=== PATIENT | female | born 1985 | race Caucasian/White ===

== ENCOUNTER 2016-06-09 18:21 | Emergency (ER) | payer OTHER ==
--- NOTE | 2016-06-09 19:15 | EDDOCDS ---
Nurse's Notes [facility] Name: Elvira Linton Age: 30 yrs Sex: Female : 1985 Arrival Date: 06/09/2016 Time: 18:21 Bed Triage 1 Private MD: No Pcp Diagnosis: Acute nasopharyngitis [common cold] Presentation: 06/09 18:26 Presenting complaint: Patient states: N/V/D yesterday, sore throat, congestion and mlb1 non-productive cough began two days ago. Adult Sepsis Screening: The patient does not have new or worsening altered mentation. Patient's respiratory rate is less than 22. Systolic blood pressure is greater than 100. Patient has a qSOFA score of 0- Negative Sepsis Screen. Suicide/Homicide risk assessment- the patient denies having any suicidal and/or homicidal ideations and does not present with any other emotional, behavioral or mental health complaints. 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 Transition of care: patient was not received from another setting of care. 18:26 Acuity: BRODIE Level 4 mlb1 18:26 Method Of Arrival: Walkin/Carried/Asstd mlb1 Triage Assessment: 18:30 General: Appears in no apparent distress, Behavior is appropriate for age, cooperative. mlb1 Pain: Location: throat, chest Pain currently is 7 out of 10 on a pain scale. HIV screening NA for this visit Offered previously. Respiratory: Reports cough that is non-productive, persistent. 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 Suboxone 8-2 mg SL film tid 2. Theraflu Max-D Severe Cold-Flu 60-30-400-1,000 mg oral pack as needed (Last dose: 06/09/2016 16:00) 3. Mucinex 1,200 mg oral Ta12 - PMHx: Asthma; Bipolar disorder; Migraine Headaches; opiate addiction; Seizure Disorder; - PSHx: none; - Social history: Smoking status: Patient states former smoker of tobacco. No barriers to communication noted, The patient speaks fluent Kazakh, Speaks appropriately for age. - Family history: Not pertinent. - : The pt / caregiver states he / she is not on anticoagulants. Home medication list is obtained from the patient. - Exposure Risk Screening:: None identified. Screenin:22 Infection Control. b 19:12 Screening information is obtained from the patient. Fall risk: No risks identified. [facility] Assistance ADL's: requires no assistance with activities of daily living. Abuse/DV Screen: The patient / caregiver reports he/she is: not in a situation that causes fear, pain or injury. Nutritional screening: No deficits noted. Advance Directives: There is no active DNR order. home support is adequate. Assessment: 19:12 General: Appears in no apparent distress, comfortable, Behavior is appropriate for age, cjh cooperative. Pain: Denies pain. Neurological: Level of Consciousness is awake, alert, Oriented to person, place, time. Respiratory: Airway is patent Respiratory effort is even, unlabored, Respiratory pattern is regular, symmetrical. Derm: Skin is pink, warm & dry. Vital Signs: 18:22 BP 114 / 85; Pulse 74; Resp 18; Temp 98(O); Pulse Ox 99% ; Weight 135.17 kg; Height 5 cmb ft. 4 in. (162.56 cm); Pain 7/10; 18:22 Body Mass Index 51.15 (135.17 kg, 162.56 cm) [facility] Vitals: 18:22 Log In Time: June 09, 2016 at 18:20. [facility] ED Course: 18:21 Patient visited by Freya Patterson. cmb 18:21 Patient moved to Waiting cmb 18:22 No Pcp is Private Physician. cmb 18:26 Patient visited by Karri Munoz RN. mlb1 18:26 Patient moved to Pre RCE cmb 18:27 Triage Initiated mlb1 18:30 Patient visited by Karri Munoz RN. mlb1 18:34 Patient moved to Triage 1 mlb1 18:57 Cedric Reyes PA is PHCP. btw 18:57 Tim Pathak MD is Attending Physician. btw 18:57 Patient visited by Cedric Reyes PA. btw 19:03 [facility] is Referral Physician. btw 19:12 The patient / caregiver is instructed regarding the plan of care and ED course. [facility] 19:12 No IV's were initiated during this patient's visit. No procedures done that require [facility] assistance. Order Results: There are currently no results for this order. Outcome: 19:03 Discharge ordered by Provider. btw 19:12 Discharge Assessment: Patient awake, alert and oriented x 3. No cognitive and/or [facility] functional deficits noted. Patient verbalized understanding of disposition instructions. patient administered narcotics - no. The following High Risk Discharge criteria are identified: None. Discharged to home ambulatory, with friend. Condition: good Condition: stable Condition: improved. Discharge instructions given to patient, Instructed on discharge instructions, follow up and referral plans. Demonstrated understanding of instructions, Pt was receptive of discharge instructions/ teaching. No special radiology studies were completed. Property :Personal belongings accompany Pt. 19:14 Patient left the ED. [facility] Signatures: Karri Munoz RN RN mlCedric Marx PA PA btw Hafner, Jane, RN RN [facility] Freya Patterson EMMA
--- NOTE | 2016-06-09 19:15 | EDDOCDS ---
Physician Documentation [facility] Name: Elvira Linton Age: 30 yrs Sex: Female : 1985 Arrival Date: 06/09/2016 Time: 18:21 Bed Triage 1 Private MD: No Pcp Disposition: 06/09/16 19:03 Discharged to Home/Self Care. Impression: Acute nasopharyngitis [common cold]. - Condition is Stable. - Discharge Instructions: Cool Mist Vaporizers, Upper Respiratory Infection, Adult, Ocwk-cd-Wyjt, Viral Infections, Cwjb-Tk-Qfro. - Medication Reconciliation, Local Pharmacy Hours form. - Follow up: [facility]; When: Call to arrange an appointment; Reason: Further diagnostic work-up, Recheck today's complaints, Continuance of care. - Problem is new. - Symptoms are unchanged. Historical: - Allergies: Aspirin (Hives); Codeine Sulfate (Hives); Seroquel (Hives); - Home Meds: 1. Suboxone 8-2 mg SL film tid 2. Theraflu Max-D Severe Cold-Flu 60-30-400-1,000 mg oral pack as needed (Last dose: 06/09/2016 16:00) 3. Mucinex 1,200 mg oral Ta12 - PMHx: Asthma; Bipolar disorder; Migraine Headaches; opiate addiction; Seizure Disorder; - PSHx: none; - Social history: Smoking status: Patient states former smoker of tobacco. No barriers to communication noted, The patient speaks fluent [place], Speaks appropriately for age. - Family history: Not pertinent. - : The pt / caregiver states he / she is not on anticoagulants. Home medication list is obtained from the patient. - Exposure Risk Screening:: None identified. 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 4 in. (162.56 cm); Pain 7/10; 18:22 Body Mass Index 51.15 (135.17 kg, 162.56 cm) cmb MDM: 19:13 Financial registration complete. [facility] Signatures: Karri Munoz RN RN mlb1 Cedric Reyes PA PA btw Hafner, JaneRN RN blayne Lu Cheema MTDD
--- NOTE | 2016-06-11 20:15 | EDDOCDS ---
Nurse's Notes [facility] Name: Elvira Linton Age: 30 yrs Sex: Female : 1985 Arrival Date: 06/09/2016 Time: 18:21 Bed Triage 1 Private MD: No Pcp Diagnosis: Acute nasopharyngitis [common cold] Presentation: 06/09 18:26 Presenting complaint: Patient states: N/V/D yesterday, sore throat, congestion and mlb1 non-productive cough began two days ago. Adult Sepsis Screening: The patient does not have new or worsening altered mentation. Patient's respiratory rate is less than 22. Systolic blood pressure is greater than 100. Patient has a qSOFA score of 0- Negative Sepsis Screen. Suicide/Homicide risk assessment- the patient denies having any suicidal and/or homicidal ideations and does not present with any other emotional, behavioral or mental health complaints. 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 Transition of care: patient was not received from another setting of care. 18:26 Acuity: BRODIE Level 4 mlb1 18:26 Method Of Arrival: Walkin/Carried/Asstd mlb1 Triage Assessment: 18:30 General: Appears in no apparent distress, Behavior is appropriate for age, cooperative. mlb1 Pain: Location: throat, chest Pain currently is 7 out of 10 on a pain scale. HIV screening NA for this visit Offered previously. Respiratory: Reports cough that is non-productive, persistent. 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 Suboxone 8-2 mg SL film tid 2. Theraflu Max-D Severe Cold-Flu 60-30-400-1,000 mg oral pack as needed (Last dose: 06/09/2016 16:00) 3. Mucinex 1,200 mg oral Ta12 - PMHx: Asthma; Bipolar disorder; Migraine Headaches; opiate addiction; Seizure Disorder; - PSHx: none; - Social history: Smoking status: Patient states former smoker of tobacco. No barriers to communication noted, The patient speaks fluent Chilean, Speaks appropriately for age. - Family history: Not pertinent. - : The pt / caregiver states he / she is not on anticoagulants. Home medication list is obtained from the patient. - Exposure Risk Screening:: None identified. Screenin:22 Infection Control. b 19:12 Screening information is obtained from the patient. Fall risk: No risks identified. [facility] Assistance ADL's: requires no assistance with activities of daily living. Abuse/DV Screen: The patient / caregiver reports he/she is: not in a situation that causes fear, pain or injury. Nutritional screening: No deficits noted. Advance Directives: There is no active DNR order. home support is adequate. Assessment: 19:12 General: Appears in no apparent distress, comfortable, Behavior is appropriate for age, cjh cooperative. Pain: Denies pain. Neurological: Level of Consciousness is awake, alert, Oriented to person, place, time. Respiratory: Airway is patent Respiratory effort is even, unlabored, Respiratory pattern is regular, symmetrical. Derm: Skin is pink, warm & dry. Vital Signs: 18:22 BP 114 / 85; Pulse 74; Resp 18; Temp 98(O); Pulse Ox 99% ; Weight 135.17 kg; Height 5 cmb ft. 4 in. (162.56 cm); Pain 7/10; 18:22 Body Mass Index 51.15 (135.17 kg, 162.56 cm) [facility] Vitals: 18:22 Log In Time: June 09, 2016 at 18:20. [facility] ED Course: 18:21 Patient visited by Freya Patterson. cmb 18:21 Patient moved to Waiting cmb 18:22 No Pcp is Private Physician. cmb 18:26 Patient visited by Karri Munoz RN. mlb1 18:26 Patient moved to Pre RCE cmb 18:27 Triage Initiated mlb1 18:30 Patient visited by Karri Munoz RN. mlb1 18:34 Patient moved to Triage 1 mlb1 18:57 Cedric Reyes PA is PHCP. btw 18:57 Tim Pathak MD is Attending Physician. btw 18:57 Patient visited by Cedric Reyes PA. btw 19:03 [facility] is Referral Physician. btw 19:12 The patient / caregiver is instructed regarding the plan of care and ED course. [facility] 19:12 No IV's were initiated during this patient's visit. No procedures done that require [facility] assistance. 19:22 [facility] Payment Agreement was scanned into [employer] and attached to record. nayeli 06/10 09:58 T-Sheet-- Draft Copy was scanned into [employer] and attached to record. gb Order Results: There are currently no results for this order. Outcome: 06/09 19:03 Discharge ordered by Provider. btw 19:12 Discharge Assessment: Patient awake, alert and oriented x 3. No cognitive and/or [facility] functional deficits noted. Patient verbalized understanding of disposition instructions. patient administered narcotics - no. The following High Risk Discharge criteria are identified: None. Discharged to home ambulatory, with friend. Condition: good Condition: stable Condition: improved. Discharge instructions given to patient, Instructed on discharge instructions, follow up and referral plans. Demonstrated understanding of instructions, Pt was receptive of discharge instructions/ teaching. No special radiology studies were completed. Property :Personal belongings accompany Pt. 19:14 Patient left the ED. [facility] Signatures: Nargis Peterson, Reg Reg Karri Moralez RN RN mlCedric Marx PA PA btw Mirlande Burk RN RN Freya Zavala Gabriela gjb Chart Complete MTDTyler
--- NOTE | 2016-06-11 20:15 | EDDOCDS ---
Physician Documentation [facility] Name: Elvira Linton Age: 30 yrs Sex: Female : 1985 Arrival Date: 06/09/2016 Time: 18:21 Bed Triage 1 Private MD: No Pcp Disposition: 06/09/16 19:03 Discharged to Home/Self Care. Impression: Acute nasopharyngitis [common cold]. - Condition is Stable. - Discharge Instructions: Cool Mist Vaporizers, Upper Respiratory Infection, Adult, Fysw-ic-Zexp, Viral Infections, Wwls-Pl-Ciqy. - Medication Reconciliation, Local Pharmacy Hours form. - Follow up: [facility]; When: Call to arrange an appointment; Reason: Further diagnostic work-up, Recheck today's complaints, Continuance of care. - Problem is new. - Symptoms are unchanged. Historical: - Allergies: Aspirin (Hives); Codeine Sulfate (Hives); Seroquel (Hives); - Home Meds: 1. Suboxone 8-2 mg SL film tid 2. Theraflu Max-D Severe Cold-Flu 60-30-400-1,000 mg oral pack as needed (Last dose: 06/09/2016 16:00) 3. Mucinex 1,200 mg oral Ta12 - PMHx: Asthma; Bipolar disorder; Migraine Headaches; opiate addiction; Seizure Disorder; - PSHx: none; - Social history: Smoking status: Patient states former smoker of tobacco. No barriers to communication noted, The patient speaks fluent Palauan, Speaks appropriately for age. - Family history: Not pertinent. - : The pt / caregiver states he / she is not on anticoagulants. Home medication list is obtained from the patient. - Exposure Risk Screening:: None identified. 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 4 in. (162.56 cm); Pain 7/10; 18:22 Body Mass Index 51.15 (135.17 kg, 162.56 cm) cmb MDM: 19:13 Financial registration complete. gjb 19:22 [facility] Payment Agreement was scanned into [employer] and attached to record. gjb 06/10 09:58 T-Sheet-- Draft Copy was scanned into [employer] and attached to record. gb Signatures: Nargis Peterson, [place] Reg Karri Moralez RN RN mlb1 Cedric Reyes PA PA btw Hafner, Jane, RN RN [facility] Lu Cheema The chart was reviewed and I authenticate all verbal orders and agree with the evaluation and treatment provided.Attachments: 06/09 19:22 [facility] [place] Payment Agreement gjb 06/10 09:58 T-Sheet-- Draft Copy gb Chart Complete MTDD
--- NOTE | 2016-06-11 20:15 | EDDOCDS ---
Physician Documentation [facility] Name: Elvira Linton Age: 30 yrs Sex: Female : 1985 Arrival Date: 06/09/2016 Time: 18:21 Bed Triage 1 Private MD: No Pcp Disposition: 06/09/16 19:03 Discharged to Home/Self Care. Impression: Acute nasopharyngitis [common cold]. - Condition is Stable. - Discharge Instructions: Cool Mist Vaporizers, Upper Respiratory Infection, Adult, Jejd-yh-Lqmz, Viral Infections, Pjfv-Ud-Tqju. - Medication Reconciliation, Local Pharmacy Hours form. - Follow up: [facility]; When: Call to arrange an appointment; Reason: Further diagnostic work-up, Recheck today's complaints, Continuance of care. - Problem is new. - Symptoms are unchanged. Historical: - Allergies: Aspirin (Hives); Codeine Sulfate (Hives); Seroquel (Hives); - Home Meds: 1. Suboxone 8-2 mg SL film tid 2. Theraflu Max-D Severe Cold-Flu 60-30-400-1,000 mg oral pack as needed (Last dose: 06/09/2016 16:00) 3. Mucinex 1,200 mg oral Ta12 - PMHx: Asthma; Bipolar disorder; Migraine Headaches; opiate addiction; Seizure Disorder; - PSHx: none; - Social history: Smoking status: Patient states former smoker of tobacco. No barriers to communication noted, The patient speaks fluent [place], Speaks appropriately for age. - Family history: Not pertinent. - : The pt / caregiver states he / she is not on anticoagulants. Home medication list is obtained from the patient. - Exposure Risk Screening:: None identified. 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 4 in. (162.56 cm); Pain 7/10; 18:22 Body Mass Index 51.15 (135.17 kg, 162.56 cm) cmb MDM: 19:13 Financial registration complete. gjb 19:22 [facility] Payment Agreement was scanned into [employer] and attached to record. gjb 06/10 09:58 T-Sheet-- Draft Copy was scanned into [employer] and attached to record. gb Signatures: Nargis Peterson, [place] Reg Karri Moralez RN RN mlb1 Cedric Reyes PA PA btw Hafner, Jane, RN RN [facility] Lu Cheema The chart was reviewed and I authenticate all verbal orders and agree with the evaluation and treatment provided.Attachments: 06/09 19:22 [facility] [place] gjb 06/10 09:58 T-Sheet-- Draft Copy gb Chart Complete MTDD
== END 2016-06-09 19:14 | disposition home or self-care (01) ==
LOC: M ED 18:21
DX: J06.9 Acute upper respiratory infection, unspecified (principal); J45.909 Unspecified asthma, uncomplicated; F31.9 Bipolar disorder, unspecified; G40.909 Epilepsy, unspecified, not intractable, without status epilepticus; F11.20 Opioid dependence, uncomplicated; Z87.891 Personal history of nicotine dependence; Z79.899 Other long term (current) drug therapy; Z88.6 Allergy status to analgesic agent; Z88.5 Allergy status to narcotic agent; Z88.8 Allergy status to other drugs, medicaments and biological substances

== ENCOUNTER 2016-06-14 21:07 | Emergency (ER) | payer OTHER ==
[2016-06-14] MEDS ORDERED: ONDANSETRON 4 MG ORAL DISINTEGRATING TAB (S0181) As Ordered ONE (23:33)
[2016-06-15 00:01] LABS: CONTROL LINE UCG INT CTR LINE PRESENT
[2016-06-15 00:09] LABS: BASO % 0.4 % (0.0-1.0); EOS # 0.2 K/mm3 (0.0-0.50); EOS % 2.1 % (0.0-3.0); LARGE UNSTAINED CELL # 0.1 K/mm3 (0.0-0.4); LARGE UNSTAINED CELL % 1.5 % (0.0-4.0); LYMPH # 2.3 K/mm3 (1.5-4.5); LYMPH % 25.5 % (24.0-44.0); MEAN CORPUSCULAR HEMOGLOBIN 27.6 pg (27.0-33.0); MEAN CORPUSCULAR HGB CONC 32.7 g/dl (32.0-36.5); MEAN CORPUSCULAR VOLUME 84.2 fl (80.0-96.0); MONO # 0.5 K/mm3 (0.0-0.8); MONO % 5.6 % (0.0-5.0); NEUTROPHILS % 64.9 % (36.0-66.0); PLATELET COUNT, AUTOMATED 268 k/mm3 (150-450); WHITE BLOOD COUNT 9.2 K/mm3 (4.0-10.0)
[2016-06-15 00:22] LABS: CONTROL LINE HCG INT CTR LINE PRESENT
[2016-06-15 00:29] LABS: ALBUMIN 4.1 GM/DL (3.2-5.2); ALBUMIN/GLOBULIN RATIO 0.98 (1.00-1.93); ALKALINE PHOSPHATASE 87 U/L (45-117); ALT/SGPT 28 U/L (12-78); ANION GAP 10 MEQ/L (8-16); AST/SGOT 15 U/L (15-37); BILIRUBIN,DIRECT 0.1 MG/DL (0.0-0.2); BILIRUBIN,TOTAL 0.4 MG/DL (0.2-1.0); BLOOD UREA NITROGEN 14 MG/DL (7-18); CALCIUM LEVEL 8.7 MG/DL (8.5-10.1); CARBON DIOXIDE LEVEL 27 MEQ/L (21-32); CHLORIDE LEVEL 104 MEQ/L (98-107); CREATININE FOR GFR 0.88 MG/DL (0.55-1.02); GLOMERULAR FILTRATION RATE > 60.0 (>60); GLUCOSE, FASTING 77 MG/DL (70-105); POTASSIUM SERUM 3.8 MEQ/L (3.5-5.1); SODIUM LEVEL 141 MEQ/L (136-145); TOTAL PROTEIN 8.3 GM/DL (6.4-8.2)
[2016-06-15] MEDS ORDERED: BACTRIM 160MG/800MG DS TAB As Ordered ONE (00:58)
--- NOTE | 2016-06-15 01:05 | EDDOCDS ---
Nurse's Notes [facility] Name: Elvira Linton Age: 30 yrs Sex: Female : 1985 Arrival Date: 06/14/2016 Time: 21:07 Bed Triage 2 Private MD: No Pcp Diagnosis: Pelvic and perineal pain;Urinary tract infection, site not specified;Vomiting Presentation: 06/14 21:13 Presenting complaint: Patient states: diarrhea and vomiting after eating for last 2 pml days - denies fever. reports low back pain around pelvis when waking up. Risk factors: the patient reports no vaginal bleeding. Adult Sepsis Screening: The patient does not have new or worsening altered mentation. Patient's respiratory rate is less than 22. Systolic blood pressure is greater than 100. Patient has a qSOFA score of 0- Negative Sepsis Screen. Suicide/Homicide risk assessment- the patient denies having any suicidal and/or homicidal ideations and does not present with any other emotional, behavioral or mental health complaints. Status: Patient is not a reference services head or dependent. Transition of care: patient was not received from another setting of care. 21:13 Acuity: BRODIE Level 3 pml 21:13 Method Of Arrival: Walkin/Carried/Asstd pml Triage Assessment: 21:14 General: Appears in no apparent distress, comfortable, Behavior is appropriate for age, pml cooperative. Pain: Location: pelvis Pain currently is 7 out of 10 on a pain scale. HIV screening NA for this visit Offered previously. GI: Reports diarrhea, vomiting. 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 Suboxone 8-2 mg SL film tid 2. albuterol sulfate 90 mcg/actuation Inhl HFAA 1 puff every 6 hours - PMHx: Asthma; Bipolar disorder; Migraine Headaches; opiate addiction; Seizure Disorder; - PSHx: none; - Social history: Smoking status: Patient uses tobacco products, light tobacco smoker. No barriers to communication noted, The patient speaks fluent Sami, Speaks appropriately for age. - Family history: Not pertinent. - : The pt / caregiver states he / she is not on anticoagulants. Home medication list is obtained from the patient. - Exposure Risk Screening:: None identified. Screenin:13 Infection Control. gr2 06/15 01:03 Screening information is obtained from the patient. Fall risk: No risks identified. cz Assistance ADL's: requires no assistance with activities of daily living. Abuse/DV Screen: The patient / caregiver reports he/she is: not in a situation that causes fear, pain or injury. Nutritional screening: No deficits noted. home support is adequate. Assessment: 01:03 Reassessment: Patient appears in no apparent distress at this time. GI: Abdomen is cz obese. Vital Signs: 06/14 21:09 BP 122 / 71; Pulse 87; Resp 18 S; Temp 98.0(O); Pulse Ox 100% on R/A; Weight 138.8 kg gr2 (M); Height 5 ft. 4 in. (162.56 cm) (R); Pain 6/10; 22:37 BP 124 / 72; Pulse 82; Resp 18; Temp 98.5(TE); Pulse Ox 100% on R/A; Pain 6/10; ar3 06/15 00:52 BP 143 / 77; Pulse 75; Resp 18; Temp 98.1(O); Pulse Ox 100% on R/A; Pain 6/10; kb5 06/14 21:09 Body Mass Index 52.52 (138.80 kg, 162.56 cm) gr2 Vitals: 06/14 21:09 Log In Time: June 14, 2016 at 21:09. gr2 ED Course: 21:09 Patient visited by Carmen Webster. gr2 21:09 No Pcp is Private Physician. gr2 21:09 Patient moved to Waiting gr2 21:12 Patient visited by Carmen Webster. gr2 21:13 Patient moved to Pre RCE gr2 21:14 Triage Initiated pml 21:15 Patient visited by Anita Cordero RN. pml 22:39 Patient visited by Marcie Perdomo PCA. ar3 23:18 Patient moved to Triage 2 cz 23:19 Karri Menendez PA is PHCP. mo1 23:19 Feliciano Winters DO is Attending Physician. mo1 23:19 Patient visited by Karri Menendez PA. mo1 23:47 Basic Metabolic Profile Sent. cln 23:47 CBC with Diff Sent. cln 23:47 HCG,Serum Qualitative Sent. cln 23:47 Lipase Sent. cln 23:47 Liver Profile Sent. cln 23:48 Patient moved to TR5 cln 23:48 Urinalysis Sent. cln 23:48 Urine Test-In Lab Sent. cln 23:48 Urine Culture Sent. cln 06/15 00:22 [facility] Payment Agreement was scanned into PAAY and attached to record. hs2 00:48 Patient visited by Edward Deasi PCA. kb5 00:48 Patient moved to Triage 2 cz 00:53 Patient visited by Edward Desai PCA. kb5 01:03 The patient / caregiver is instructed regarding the plan of care and ED course. cz 01:03 No IV's were initiated during this patient's visit. No procedures done that require cz assistance. Administered Medications: 06/14 23:47 Drug: Ondansetron ODT 4 mg [ondansetron 4 mg disintegrating tablet (1 tabs)] Route: PO; cz 06/15 01:02 Drug: Trimethoprim-Sulfamethoxazole 1 tabs [sulfamethoxazole 800 mg-trimethoprim 160 mg cz tablet (1 tabs)] Route: PO; Order Results: Lab Order: Basic Metabolic Profile; SPEC'M 06/14/16 23:35 Test: GLUCOSE, FASTING; Value: 77; Range: 70-105; Units: MG/DL; Status: F Test: BLOOD UREA NITROGEN; Value: 14; Range: 7-18; Units: MG/DL; Status: F Test: CREATININE FOR GFR; Value: 0.88; Range: 0.55-1.02; Units: MG/DL; Status: F Test: SODIUM LEVEL; Range: 136-145; Units: MEQ/L; Status: I Test: POTASSIUM SERUM; Range: 3.5-5.1; Units: MEQ/L; Status: I Test: CHLORIDE LEVEL; Range: 98-107; Units: MEQ/L; Status: I Test: CARBON DIOXIDE LEVEL; Range: 21-32; Units: MEQ/L; Status: I Test: ANION GAP; Range: 8-16; Units: MEQ/L; Status: I Test: CALCIUM LEVEL; Range: 8.5-10.1; Units: MG/DL; Status: I Test: GLOMERULAR FILTRATION RATE; Value: > 60.0; Range: >60; Status: F Test: SODIUM LEVEL; Value: 141; Range: 136-145; Units: MEQ/L; Status: F Test: POTASSIUM SERUM; Value: 3.8; Range: 3.5-5.1; Units: MEQ/L; Status: F Test: CHLORIDE LEVEL; Value: 104; Range: 98-107; Units: MEQ/L; Status: F Test: CARBON DIOXIDE LEVEL; Value: 27; Range: 21-32; Units: MEQ/L; Status: F Test: ANION GAP; Value: 10; Range: 8-16; Units: MEQ/L; Status: F Test: CALCIUM LEVEL; Value: 8.7; Range: 8.5-10.1; Units: MG/DL; Status: F Test Note: ; Units are mL/min/1.73 m2 Chronic Kidney Disease Staging per NKF: Stage I & II GFR >=60 Normal to Mildly Decreased Stage III GFR 30-59 Moderately Decreased Stage IV GFR 15-29 Severely Decreased Stage V GFR <15 Very Little GFR Left ESRD GFR <15 on FINE UNHAIRER Lab Order: CBC with Diff; SPEC'M 06/14/16 23:35 Test: WHITE BLOOD COUNT; Value: 9.2; Range: 4.0-10.0; Units: K/mm3; Status: F Test: RED BLOOD COUNT; Value: 4.87; Range: 4.00-5.40; Units: M/mm3; Status: F Test: HEMOGLOBIN; Value: 13.4; Range: 12.0-16.0; Units: g/dl; Status: F Test: HEMATOCRIT; Value: 41.0; Range: 36.0-47.0; Units: %; Status: F Test: MEAN CORPUSCULAR VOLUME; Value: 84.2; Range: 80.0-96.0; Units: fl; Status: F Test: MEAN CORPUSCULAR HEMOGLOBIN; Value: 27.6; Range: 27.0-33.0; Units: pg; Status: F Test: MEAN CORPUSCULAR HGB CONC; Value: 32.7; Range: 32.0-36.5; Units: g/dl; Status: F Test: RED CELL DISTRIBUTION WIDTH; Value: 14.0; Range: 11.5-14.5; Units: %; Status: F Test: PLATELET COUNT, AUTOMATED; Value: 268; Range: 150-450; Units: k/mm3; Status: F Test: NEUTROPHILS %; Value: 64.9; Range: 36.0-66.0; Units: %; Status: F Test: LYMPH %; Value: 25.5; Range: 24.0-44.0; Units: %; Status: F Test: MONO %; Value: 5.6; Range: 0.0-5.0; Abnormal: Above high normal; Units: %; Status: F Test: EOS %; Value: 2.1; Range: 0.0-3.0; Units: %; Status: F Test: BASO %; Value: 0.4; Range: 0.0-1.0; Units: %; Status: F Test: LARGE UNSTAINED CELL %; Value: 1.5; Range: 0.0-4.0; Units: %; Status: F Test: NEUTROPHILS #; Value: 6.0; Range: 1.8-7.7; Units: K/mm3; Status: F Test: LYMPH #; Value: 2.3; Range: 1.5-4.5; Units: K/mm3; Status: F Test: MONO #; Value: 0.5; Range: 0.0-0.8; Units: K/mm3; Status: F Test: EOS #; Value: 0.2; Range: 0.0-0.50; Units: K/mm3; Status: F Test: BASO #; Value: 0.0; Range: 0.0-0.2; Units: K/mm3; Status: F Test: LARGE UNSTAINED CELL #; Value: 0.1; Range: 0.0-0.4; Units: K/mm3; Status: F Lab Order: HCG,Serum Qualitative; SPEC'M 06/14/16 23:35 Test: HCG, SERUM QUALITATIVE; Value: NEGATIVE; Range: NEGATIVE; Status: F Lab Order: Lipase; SPEC'M 06/14/16 23:35 Test: LIPASE; Value: 106; Range: 73-393; Units: U/L; Status: F Lab Order: Liver Profile; SPEC'M 06/14/16 23:35 Test: AST/SGOT; Value: 15; Range: 15-37; Units: U/L; Status: F Test: ALT/SGPT; Value: 28; Range: 12-78; Units: U/L; Status: F Test: ALKALINE PHOSPHATASE; Value: 87; Range: 45-117; Units: U/L; Status: F Test: BILIRUBIN,TOTAL; Value: 0.4; Range: 0.2-1.0; Units: MG/DL; Status: F Test: BILIRUBIN,DIRECT; Value: 0.1; Range: 0.0-0.2; Units: MG/DL; Status: F Test: TOTAL PROTEIN; Value: 8.3; Range: 6.4-8.2; Abnormal: Above high normal; Units: GM/DL; Status: F Test: ALBUMIN; Value: 4.1; Range: 3.2-5.2; Units: GM/DL; Status: F Test: ALBUMIN/GLOBULIN RATIO; Value: 0.98; Range: 1.00-1.93; Abnormal: Below low normal; Status: F Lab Order: Urinalysis; SPEC'M 06/14/16 23:35 Test: APPEARANCE, URINE; Value: CLOUDY; Range: CLEAR; Abnormal: Above high normal; Status: F Test: COLOR, URINE; Value: YELLOW; Range: YELLOW; Status: F Test: PH,URINE; Value: 7.0; Range: 5.0-9.0; Units: UNITS; Status: F Test: SPECIFIC GRAVITY URINE AUTO; Value: 1.024; Range: 1.002-1.035; Status: F Test: PROTEIN, URINE AUTO; Value: NEGATIVE; Range: NEGATIVE; Units: mg/dL; Status: F Test: GLUCOSE, URINE (UA) AUTO; Value: NEGATIVE; Range: NEGATIVE; Units: mg/dL; Status: F Test: KETONE, URINE AUTO; Value: NEGATIVE; Range: NEGATIVE; Units: mg/dL; Status: F Test: UROBILINOGEN, URINE AUTO; Value: 4.0; Range: 0.0-2.0; Abnormal: Above high normal; Units: mg/dL; Status: F Test: BILIRUBIN, URINE AUTO; Value: NEGATIVE; Range: NEGATIVE; Status: F Test: NITRITE, URINE AUTO; Value: NEGATIVE; Range: NEGATIVE; Status: F Test: LEUKOCYTE ESTERASE, URINE AUTO; Value: 1+; Range: NEGATIVE; Abnormal: Above high normal; Status: F Test: BLOOD, URINE BLOOD; Value: NEGATIVE; Range: NEGATIVE; Status: F Test: SPERM, URINE AUTO; Range: NONE; Status: I Test: WBC, URINE AUTO; Value: 21; Range: 0-3; Abnormal: Above high normal; Units: /HPF; Status: F Test: RBC, URINE AUTO; Value: 5; Range: 0-3; Abnormal: Above high normal; Units: /HPF; Status: F Test: BACTERIA, URINE AUTO; Value: NEGATIVE; Range: NEGATIVE; Status: F Test: SQUAMOUS EPITHELIAL CELL UR AU; Value: 3; Range: 0-6; Units: /HPF; Status: F Test: MUCUS, URINE; Value: SMALL; Range: NEGATIVE; Status: F Test: HYALINE CAST, URINE AUTO; Value: 0; Range: 0-1; Units: /LPF; Status: F Test: AMORPHOUS SEDIMENT; Value: SMALL; Range: NEGATIVE; Abnormal: Above high normal; Status: F Lab Order: Urine Test-In Lab; SPEC'M 06/14/16 23:35 Test: URINE PREG TEST; Value: NEGATIVE; Range: NEGATIVE; Status: F Outcome: 00:53 Discharge ordered by Provider. mo1 01:02 Discharge Assessment: Patient awake, alert and oriented x 3. No cognitive and/or cz functional deficits noted. Patient verbalized understanding of disposition instructions. patient administered narcotics - no. The following High Risk Discharge criteria are identified: None. Discharged to home ambulatory. Condition: stable. Discharge instructions given to patient, Instructed on discharge instructions, follow up and referral plans. medication usage, Demonstrated understanding of instructions, medications, Pt was receptive of discharge instructions/ teaching. Prescriptions given X 3. No special radiology studies were completed. Property :Personal belongings accompany Pt. 01:04 Patient left the ED. cz Signatures: Josep George RN RN cz Bancroft, Kristopher, TOOL CRIB MANAGER TOOL CRIB MANAGER kb5 Marcie Perdomo, TOOL CRIB MANAGER TOOL CRIB MANAGER ar3 Anita Cordero,RN Carmen Ghotra gr2 Karri Menendez PA PA mo1 Nery Sanchez, Reg Reg hs2 Emily Cline, TOOL CRIB MANAGER TOOL CRIB MANAGER cln MTDD
--- NOTE | 2016-06-15 01:05 | EDDOCDS ---
Physician Documentation [facility] Name: Elvira Linton Age: 30 yrs Sex: Female : 1985 Arrival Date: 06/14/2016 Time: 21:07 Bed Triage 2 Private MD: No Pcp Disposition: 06/15/16 00:53 Discharged to Home/Self Care. Impression: Pelvic and perineal pain, Urinary tract infection, site not specified, Vomiting. - Condition is Stable. - Discharge Instructions: Nausea and Vomiting, Pelvic Pain, Female, Urinary Tract Infection. - Prescriptions for Cipro 500 mg Oral Tablet - take 1 tablet by ORAL route every 12 hours; 14 tablet. Diflucan 150 mg Oral Tablet - take 1 tablet by ORAL route one time for 1 day; 2 tablet. ZOFRAN ODT 4 mg - dissolve 1 tablet by ORAL route 4 times per day As needed do not chew, do not swallow whole; 10 tablet. - Medication Reconciliation, Local Pharmacy Hours form. - Follow up: Private Physician; When: Call to arrange an appointment; Reason: Recheck today's complaints, Continuance of care. - Problem is new. - Symptoms are unchanged. Historical: - Allergies: Seroquel (Hives); Aspirin (Hives); Codeine Sulfate (Hives); - Home Meds: 1. Suboxone 8-2 mg SL film tid 2. albuterol sulfate 90 mcg/actuation Inhl HFAA 1 puff every 6 hours - PMHx: Asthma; Bipolar disorder; Migraine Headaches; opiate addiction; Seizure Disorder; - PSHx: none; - Social history: Smoking status: Patient uses tobacco products, light tobacco smoker. No barriers to communication noted, The patient speaks fluent [place], Speaks appropriately for age. - Family history: Not pertinent. - : The pt / caregiver states he / she is not on anticoagulants. Home medication list is obtained from the patient. - Exposure Risk Screening:: None identified. 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 4 in. (162.56 cm) (R); Pain 6/10; 22:37 BP 124 / 72; Pulse 82; Resp 18; Temp 98.5(TE); Pulse Ox 100% on R/A; Pain 6/10; ar3 06/15 00:52 BP 143 / 77; Pulse 75; Resp 18; Temp 98.1(O); Pulse Ox 100% on R/A; Pain 6/10; kb5 06/14 21:09 Body Mass Index 52.52 (138.80 kg, 162.56 cm) gr2 MDM: 06/14 23:31 Ondansetron ODT Oral Disintegrating Tablet 4 mg PO once ordered. mo1 23:31 Basic Metabolic Profile Ordered. EDMS 23:31 CBC with Diff Ordered. EDMS 23:31 HCG,Serum Qualitative Ordered. EDMS 23:31 Lipase Ordered. EDMS 23:31 Liver Profile Ordered. EDMS 23:32 Urinalysis Ordered. EDMS 23:32 Urine Test-In Lab Ordered. EDMS 23:32 Urine Culture Ordered. EDMS 23:32 NOTHING BY MOUTH+DIET ordered. EDMS 23:43 Financial registration complete. hs2 06/15 00:22 [facility] Payment Agreement was scanned into [employer] and attached to record. hs2 00:31 CBC with Diff Reviewed. mo1 00:31 Urinalysis Reviewed. mo1 00:32 HCG,Serum Qualitative Reviewed. mo1 00:32 Urine Test-In Lab Reviewed. mo1 00:36 Liver Profile Reviewed. mo1 00:36 Basic Metabolic Profile Reviewed. mo1 00:36 Lipase Reviewed. mo1 00:52 Trimethoprim-Sulfamethoxazole 160 mg-800 mg (DS) 1 tabs PO once ordered. mo1 Administered Medications: 06/14 23:47 Drug: Ondansetron ODT 4 mg [ondansetron 4 mg disintegrating tablet (1 tabs)] Route: PO; cz 06/15 01:02 Drug: Trimethoprim-Sulfamethoxazole 1 tabs [sulfamethoxazole 800 mg-trimethoprim 160 mg cz tablet (1 tabs)] Route: PO; Signatures: Dispatcher Med[employer] EDMS Josep George RN RN cz Quay, Paulina, RN RN pml Karri Menendez PA PA mo1 Nery Sanchez, Reg Reg hs2 The chart was reviewed and I authenticate all verbal orders and agree with the evaluation and treatment provided.Attachments: 00:22 [facility] Payment Agreement hs2 MTDD
--- NOTE | 2016-06-17 02:05 | EDDOCDS ---
Physician Documentation [facility] Name: Elvira Linton Age: 30 yrs Sex: Female : 1985 Arrival Date: 06/14/2016 Time: 21:07 Bed Triage 2 Private MD: No Pcp Disposition: 06/15/16 00:53 Discharged to Home/Self Care. Impression: Pelvic and perineal pain, Urinary tract infection, site not specified, Vomiting. - Condition is Stable. - Discharge Instructions: Nausea and Vomiting, Pelvic Pain, Female, Urinary Tract Infection. - Prescriptions for Cipro 500 mg Oral Tablet - take 1 tablet by ORAL route every 12 hours; 14 tablet. Diflucan 150 mg Oral Tablet - take 1 tablet by ORAL route one time for 1 day; 2 tablet. ZOFRAN ODT 4 mg - dissolve 1 tablet by ORAL route 4 times per day As needed do not chew, do not swallow whole; 10 tablet. - Medication Reconciliation, Local Pharmacy Hours form. - Follow up: Private Physician; When: Call to arrange an appointment; Reason: Recheck today's complaints, Continuance of care. - Problem is new. - Symptoms are unchanged. Historical: - Allergies: Seroquel (Hives); Aspirin (Hives); Codeine Sulfate (Hives); - Home Meds: 1. Suboxone 8-2 mg SL film tid 2. albuterol sulfate 90 mcg/actuation Inhl HFAA 1 puff every 6 hours - PMHx: Asthma; Bipolar disorder; Migraine Headaches; opiate addiction; Seizure Disorder; - PSHx: none; - Social history: Smoking status: Patient uses tobacco products, light tobacco smoker. No barriers to communication noted, The patient speaks fluent Indian, Speaks appropriately for age. - Family history: Not pertinent. - : The pt / caregiver states he / she is not on anticoagulants. Home medication list is obtained from the patient. - Exposure Risk Screening:: None identified. 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 4 in. (162.56 cm) (R); Pain 6/10; 22:37 BP 124 / 72; Pulse 82; Resp 18; Temp 98.5(TE); Pulse Ox 100% on R/A; Pain 6/10; ar3 06/15 00:52 BP 143 / 77; Pulse 75; Resp 18; Temp 98.1(O); Pulse Ox 100% on R/A; Pain 6/10; kb5 06/14 21:09 Body Mass Index 52.52 (138.80 kg, 162.56 cm) gr2 MDM: 06/14 23:31 Ondansetron ODT Oral Disintegrating Tablet 4 mg PO once ordered. mo1 23:31 Basic Metabolic Profile Ordered. EDMS 23:31 CBC with Diff Ordered. EDMS 23:31 HCG,Serum Qualitative Ordered. EDMS 23:31 Lipase Ordered. EDMS 23:31 Liver Profile Ordered. EDMS 23:32 Urinalysis Ordered. EDMS 23:32 Urine Test-In Lab Ordered. EDMS 23:32 Urine Culture Ordered. EDMS 23:32 NOTHING BY MOUTH+DIET ordered. EDMS 23:43 Financial registration complete. hs2 06/15 00:22 [facility] Payment Agreement was scanned into Vestor[employer] and attached to record. hs2 00:31 CBC with Diff Reviewed. mo1 00:31 Urinalysis Reviewed. mo1 00:32 HCG,Serum Qualitative Reviewed. mo1 00:32 Urine Test-In Lab Reviewed. mo1 00:36 Liver Profile Reviewed. mo1 00:36 Basic Metabolic Profile Reviewed. mo1 00:36 Lipase Reviewed. mo1 00:52 Trimethoprim-Sulfamethoxazole 160 mg-800 mg (DS) 1 tabs PO once ordered. mo1 09:41 T-Sheet-- Draft Copy was scanned into Vestor[employer] and attached to record. gb Administered Medications: 06/14 23:47 Drug: Ondansetron ODT 4 mg [ondansetron 4 mg disintegrating tablet (1 tabs)] Route: PO; cz 06/15 01:02 Drug: Trimethoprim-Sulfamethoxazole 1 tabs [sulfamethoxazole 800 mg-trimethoprim 160 mg cz tablet (1 tabs)] Route: PO; Signatures: Dispatcher [employer] EDMS Josep George RN RN cz Barnhardt, Gloria, [place] Reg gb Anita Cordero RN RN pml O'Hagan, Michael, PA PA mo1 Nery Sanchez, Reg Reg hs2 The chart was reviewed and I authenticate all verbal orders and agree with the evaluation and treatment provided.Attachments: 00:22 [facility] Payment Agreement hs2 09:41 T-Sheet-- Draft Copy gb Chart Complete MTDD
--- NOTE | 2016-06-17 02:05 | EDDOCDS ---
Physician Documentation [facility] Name: Elvira Linton Age: 30 yrs Sex: Female : 1985 Arrival Date: 06/14/2016 Time: 21:07 Bed Triage 2 Private MD: No Pcp Disposition: 06/15/16 00:53 Discharged to Home/Self Care. Impression: Pelvic and perineal pain, Urinary tract infection, site not specified, Vomiting. - Condition is Stable. - Discharge Instructions: Nausea and Vomiting, Pelvic Pain, Female, Urinary Tract Infection. - Prescriptions for Cipro 500 mg Oral Tablet - take 1 tablet by ORAL route every 12 hours; 14 tablet. Diflucan 150 mg Oral Tablet - take 1 tablet by ORAL route one time for 1 day; 2 tablet. ZOFRAN ODT 4 mg - dissolve 1 tablet by ORAL route 4 times per day As needed do not chew, do not swallow whole; 10 tablet. - Medication Reconciliation, Local Pharmacy Hours form. - Follow up: Private Physician; When: Call to arrange an appointment; Reason: Recheck today's complaints, Continuance of care. - Problem is new. - Symptoms are unchanged. Historical: - Allergies: Seroquel (Hives); Aspirin (Hives); Codeine Sulfate (Hives); - Home Meds: 1. Suboxone 8-2 mg SL film tid 2. albuterol sulfate 90 mcg/actuation Inhl HFAA 1 puff every 6 hours - PMHx: Asthma; Bipolar disorder; Migraine Headaches; opiate addiction; Seizure Disorder; - PSHx: none; - Social history: Smoking status: Patient uses tobacco products, light tobacco smoker. No barriers to communication noted, The patient speaks fluent Senegalese, Speaks appropriately for age. - Family history: Not pertinent. - : The pt / caregiver states he / she is not on anticoagulants. Home medication list is obtained from the patient. - Exposure Risk Screening:: None identified. FINANCIAL SERVICES INTERNSHIP: 06/14 21:14 LMP 06/10/2015 pml Vital Signs: 21:09 BP 122 / 71; Pulse 87; Resp 18 S; Temp 98.0(O); Pulse Ox 100% on R/A; Weight 138.8 kg / gr2 306 lbs (M); Height 5 ft. 4 in. (162.56 cm) (R); Pain 6/10; 22:37 BP 124 / 72; Pulse 82; Resp 18; Temp 98.5(TE); Pulse Ox 100% on R/A; Pain 6/10; ar3 06/15 00:52 BP 143 / 77; Pulse 75; Resp 18; Temp 98.1(O); Pulse Ox 100% on R/A; Pain 6/10; kb5 06/14 21:09 Body Mass Index 52.52 (138.80 kg, 162.56 cm) gr2 MDM: 06/14 23:31 Ondansetron ODT Oral Disintegrating Tablet 4 mg PO once ordered. mo1 23:31 Basic Metabolic Profile Ordered. EDMS 23:31 CBC with Diff Ordered. EDMS 23:31 HCG,Serum Qualitative Ordered. EDMS 23:31 Lipase Ordered. EDMS 23:31 Liver Profile Ordered. EDMS 23:32 Urinalysis Ordered. EDMS 23:32 Urine Test-In Lab Ordered. EDMS 23:32 Urine Culture Ordered. EDMS 23:32 NOTHING BY MOUTH+DIET ordered. EDMS 23:43 Financial registration complete. hs2 06/15 00:22 [facility] Payment Agreement was scanned into [employer] and attached to record. hs2 00:31 CBC with Diff Reviewed. mo1 00:31 Urinalysis Reviewed. mo1 00:32 HCG,Serum Qualitative Reviewed. mo1 00:32 Urine Test-In Lab Reviewed. mo1 00:36 Liver Profile Reviewed. mo1 00:36 Basic Metabolic Profile Reviewed. mo1 00:36 Lipase Reviewed. mo1 00:52 Trimethoprim-Sulfamethoxazole 160 mg-800 mg (DS) 1 tabs PO once ordered. mo1 09:41 T-Sheet-- Draft Copy was scanned into [employer] and attached to record. gb Administered Medications: 06/14 23:47 Drug: Ondansetron ODT 4 mg [ondansetron 4 mg disintegrating tablet (1 tabs)] Route: PO; cz 06/15 01:02 Drug: Trimethoprim-Sulfamethoxazole 1 tabs [sulfamethoxazole 800 mg-trimethoprim 160 mg cz tablet (1 tabs)] Route: PO; Signatures: Dispatcher [employer] EDMS Josep George RN RN cz Barnhardt, Gloria, [place] Reg gb Anita Cordero RN RN pml O'Hagan, Michael, PA PA mo1 Nery Sanchez, Reg Reg hs2 The chart was reviewed and I authenticate all verbal orders and agree with the evaluation and treatment provided.Attachments: 00:22 [facility] Payment Agreement hs2 09:41 T-Sheet-- Draft Copy gb Chart Complete MTDD
--- NOTE | 2016-06-17 02:05 | EDDOCDS ---
Nurse's Notes [facility] Name: Elvira Linton Age: 30 yrs Sex: Female : 1985 Arrival Date: 06/14/2016 Time: 21:07 Bed Triage 2 Private MD: No Pcp Diagnosis: Pelvic and perineal pain;Urinary tract infection, site not specified;Vomiting Presentation: 06/14 21:13 Presenting complaint: Patient states: diarrhea and vomiting after eating for last 2 pml days - denies fever. reports low back pain around pelvis when waking up. Risk factors: the patient reports no vaginal bleeding. Adult Sepsis Screening: The patient does not have new or worsening altered mentation. Patient's respiratory rate is less than 22. Systolic blood pressure is greater than 100. Patient has a qSOFA score of 0- Negative Sepsis Screen. Suicide/Homicide risk assessment- the patient denies having any suicidal and/or homicidal ideations and does not present with any other emotional, behavioral or mental health complaints. 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 Transition of care: patient was not received from another setting of care. 21:13 Acuity: BRODIE Level 3 pml 21:13 Method Of Arrival: Walkin/Carried/Asstd pml Triage Assessment: 21:14 General: Appears in no apparent distress, comfortable, Behavior is appropriate for age, pml cooperative. Pain: Location: pelvis Pain currently is 7 out of 10 on a pain scale. HIV screening NA for this visit Offered previously. GI: Reports diarrhea, vomiting. 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 Suboxone 8-2 mg SL film tid 2. albuterol sulfate 90 mcg/actuation Inhl HFAA 1 puff every 6 hours - PMHx: Asthma; Bipolar disorder; Migraine Headaches; opiate addiction; Seizure Disorder; - PSHx: none; - Social history: Smoking status: Patient uses tobacco products, light tobacco smoker. No barriers to communication noted, The patient speaks fluent Mongolian, Speaks appropriately for age. - Family history: Not pertinent. - : The pt / caregiver states he / she is not on anticoagulants. Home medication list is obtained from the patient. - Exposure Risk Screening:: None identified. Screenin:13 Infection Control. gr2 06/15 01:03 Screening information is obtained from the patient. Fall risk: No risks identified. cz Assistance ADL's: requires no assistance with activities of daily living. Abuse/DV Screen: The patient / caregiver reports he/she is: not in a situation that causes fear, pain or injury. Nutritional screening: No deficits noted. home support is adequate. Assessment: 01:03 Reassessment: Patient appears in no apparent distress at this time. GI: Abdomen is cz obese. Vital Signs: 06/14 21:09 BP 122 / 71; Pulse 87; Resp 18 S; Temp 98.0(O); Pulse Ox 100% on R/A; Weight 138.8 kg gr2 (M); Height 5 ft. 4 in. (162.56 cm) (R); Pain 6/10; 22:37 BP 124 / 72; Pulse 82; Resp 18; Temp 98.5(TE); Pulse Ox 100% on R/A; Pain 6/10; ar3 06/15 00:52 BP 143 / 77; Pulse 75; Resp 18; Temp 98.1(O); Pulse Ox 100% on R/A; Pain 6/10; kb5 06/14 21:09 Body Mass Index 52.52 (138.80 kg, 162.56 cm) gr2 Vitals: 06/14 21:09 Log In Time: June 14, 2016 at 21:09. gr2 ED Course: 21:09 Patient visited by Carmen Webster. gr2 21:09 No Pcp is Private Physician. gr2 21:09 Patient moved to Waiting gr2 21:12 Patient visited by Carmen Webster. gr2 21:13 Patient moved to Pre RCE gr2 21:14 Triage Initiated pml 21:15 Patient visited by Anita Cordero RN. pml 22:39 Patient visited by Marcie Perdomo PCA. ar3 23:18 Patient moved to Triage 2 cz 23:19 Karri Menendez PA is PHCP. mo1 23:19 Feliciano Winters DO is Attending Physician. mo1 23:19 Patient visited by Karri Menendez PA. mo1 23:47 Basic Metabolic Profile Sent. cln 23:47 CBC with Diff Sent. cln 23:47 HCG,Serum Qualitative Sent. cln 23:47 Lipase Sent. cln 23:47 Liver Profile Sent. cln 23:48 Patient moved to TR5 cln 23:48 Urinalysis Sent. cln 23:48 Urine Test-In Lab Sent. cln 23:48 Urine Culture Sent. cln 06/15 00:22 [facility] Payment Agreement was scanned into [employer] and attached to record. hs2 00:48 Patient visited by Edward eDsai PCA. kb5 00:48 Patient moved to Triage 2 cz 00:53 Patient visited by Edward Desai PCA. kb5 01:03 The patient / caregiver is instructed regarding the plan of care and ED course. cz 01:03 No IV's were initiated during this patient's visit. No procedures done that require cz assistance. 09:41 T-Sheet-- Draft Copy was scanned into [employer] and attached to record. gb Administered Medications: 06/14 23:47 Drug: Ondansetron ODT 4 mg [ondansetron 4 mg disintegrating tablet (1 tabs)] Route: PO; cz 06/15 01:02 Drug: Trimethoprim-Sulfamethoxazole 1 tabs [sulfamethoxazole 800 mg-trimethoprim 160 mg cz tablet (1 tabs)] Route: PO; Order Results: Lab Order: Basic Metabolic Profile; SPEC'M 06/14/16 23:35 Test: GLUCOSE, FASTING; Value: 77; Range: 70-105; Units: MG/DL; Status: F Test: BLOOD UREA NITROGEN; Value: 14; Range: 7-18; Units: MG/DL; Status: F Test: CREATININE FOR GFR; Value: 0.88; Range: 0.55-1.02; Units: MG/DL; Status: F Test: SODIUM LEVEL; Range: 136-145; Units: MEQ/L; Status: I Test: POTASSIUM SERUM; Range: 3.5-5.1; Units: MEQ/L; Status: I Test: CHLORIDE LEVEL; Range: 98-107; Units: MEQ/L; Status: I Test: CARBON DIOXIDE LEVEL; Range: 21-32; Units: MEQ/L; Status: I Test: ANION GAP; Range: 8-16; Units: MEQ/L; Status: I Test: CALCIUM LEVEL; Range: 8.5-10.1; Units: MG/DL; Status: I Test: GLOMERULAR FILTRATION RATE; Value: > 60.0; Range: >60; Status: F Test: SODIUM LEVEL; Value: 141; Range: 136-145; Units: MEQ/L; Status: F Test: POTASSIUM SERUM; Value: 3.8; Range: 3.5-5.1; Units: MEQ/L; Status: F Test: CHLORIDE LEVEL; Value: 104; Range: 98-107; Units: MEQ/L; Status: F Test: CARBON DIOXIDE LEVEL; Value: 27; Range: 21-32; Units: MEQ/L; Status: F Test: ANION GAP; Value: 10; Range: 8-16; Units: MEQ/L; Status: F Test: CALCIUM LEVEL; Value: 8.7; Range: 8.5-10.1; Units: MG/DL; Status: F Test Note: ; Units are mL/min/1.73 m2 Chronic Kidney Disease Staging per NKF: Stage I & II GFR >=60 Normal to Mildly Decreased Stage III GFR 30-59 Moderately Decreased Stage IV GFR 15-29 Severely Decreased Stage V GFR <15 Very Little GFR Left ESRD GFR <15 on LOBBY ATTENDANT Lab Order: CBC with Diff; SPEC'M 06/14/16 23:35 Test: WHITE BLOOD COUNT; Value: 9.2; Range: 4.0-10.0; Units: K/mm3; Status: F Test: RED BLOOD COUNT; Value: 4.87; Range: 4.00-5.40; Units: M/mm3; Status: F Test: HEMOGLOBIN; Value: 13.4; Range: 12.0-16.0; Units: g/dl; Status: F Test: HEMATOCRIT; Value: 41.0; Range: 36.0-47.0; Units: %; Status: F Test: MEAN CORPUSCULAR VOLUME; Value: 84.2; Range: 80.0-96.0; Units: fl; Status: F Test: MEAN CORPUSCULAR HEMOGLOBIN; Value: 27.6; Range: 27.0-33.0; Units: pg; Status: F Test: MEAN CORPUSCULAR HGB CONC; Value: 32.7; Range: 32.0-36.5; Units: g/dl; Status: F Test: RED CELL DISTRIBUTION WIDTH; Value: 14.0; Range: 11.5-14.5; Units: %; Status: F Test: PLATELET COUNT, AUTOMATED; Value: 268; Range: 150-450; Units: k/mm3; Status: F Test: NEUTROPHILS %; Value: 64.9; Range: 36.0-66.0; Units: %; Status: F Test: LYMPH %; Value: 25.5; Range: 24.0-44.0; Units: %; Status: F Test: MONO %; Value: 5.6; Range: 0.0-5.0; Abnormal: Above high normal; Units: %; Status: F Test: EOS %; Value: 2.1; Range: 0.0-3.0; Units: %; Status: F Test: BASO %; Value: 0.4; Range: 0.0-1.0; Units: %; Status: F Test: LARGE UNSTAINED CELL %; Value: 1.5; Range: 0.0-4.0; Units: %; Status: F Test: NEUTROPHILS #; Value: 6.0; Range: 1.8-7.7; Units: K/mm3; Status: F Test: LYMPH #; Value: 2.3; Range: 1.5-4.5; Units: K/mm3; Status: F Test: MONO #; Value: 0.5; Range: 0.0-0.8; Units: K/mm3; Status: F Test: EOS #; Value: 0.2; Range: 0.0-0.50; Units: K/mm3; Status: F Test: BASO #; Value: 0.0; Range: 0.0-0.2; Units: K/mm3; Status: F Test: LARGE UNSTAINED CELL #; Value: 0.1; Range: 0.0-0.4; Units: K/mm3; Status: F Lab Order: HCG,Serum Qualitative; SPEC'M 06/14/16 23:35 Test: HCG, SERUM QUALITATIVE; Value: NEGATIVE; Range: NEGATIVE; Status: F Lab Order: Lipase; SPEC'M 06/14/16 23:35 Test: LIPASE; Value: 106; Range: 73-393; Units: U/L; Status: F Lab Order: Liver Profile; SPEC'M 06/14/16 23:35 Test: AST/SGOT; Value: 15; Range: 15-37; Units: U/L; Status: F Test: ALT/SGPT; Value: 28; Range: 12-78; Units: U/L; Status: F Test: ALKALINE PHOSPHATASE; Value: 87; Range: 45-117; Units: U/L; Status: F Test: BILIRUBIN,TOTAL; Value: 0.4; Range: 0.2-1.0; Units: MG/DL; Status: F Test: BILIRUBIN,DIRECT; Value: 0.1; Range: 0.0-0.2; Units: MG/DL; Status: F Test: TOTAL PROTEIN; Value: 8.3; Range: 6.4-8.2; Abnormal: Above high normal; Units: GM/DL; Status: F Test: ALBUMIN; Value: 4.1; Range: 3.2-5.2; Units: GM/DL; Status: F Test: ALBUMIN/GLOBULIN RATIO; Value: 0.98; Range: 1.00-1.93; Abnormal: Below low normal; Status: F Lab Order: Urinalysis; SPEC'M 06/14/16 23:35 Test: APPEARANCE, URINE; Value: CLOUDY; Range: CLEAR; Abnormal: Above high normal; Status: F Test: COLOR, URINE; Value: YELLOW; Range: YELLOW; Status: F Test: PH,URINE; Value: 7.0; Range: 5.0-9.0; Units: UNITS; Status: F Test: SPECIFIC GRAVITY URINE AUTO; Value: 1.024; Range: 1.002-1.035; Status: F Test: PROTEIN, URINE AUTO; Value: NEGATIVE; Range: NEGATIVE; Units: mg/dL; Status: F Test: GLUCOSE, URINE (UA) AUTO; Value: NEGATIVE; Range: NEGATIVE; Units: mg/dL; Status: F Test: KETONE, URINE AUTO; Value: NEGATIVE; Range: NEGATIVE; Units: mg/dL; Status: F Test: UROBILINOGEN, URINE AUTO; Value: 4.0; Range: 0.0-2.0; Abnormal: Above high normal; Units: mg/dL; Status: F Test: BILIRUBIN, URINE AUTO; Value: NEGATIVE; Range: NEGATIVE; Status: F Test: NITRITE, URINE AUTO; Value: NEGATIVE; Range: NEGATIVE; Status: F Test: LEUKOCYTE ESTERASE, URINE AUTO; Value: 1+; Range: NEGATIVE; Abnormal: Above high normal; Status: F Test: BLOOD, URINE BLOOD; Value: NEGATIVE; Range: NEGATIVE; Status: F Test: SPERM, URINE AUTO; Range: NONE; Status: I Test: WBC, URINE AUTO; Value: 21; Range: 0-3; Abnormal: Above high normal; Units: /HPF; Status: F Test: RBC, URINE AUTO; Value: 5; Range: 0-3; Abnormal: Above high normal; Units: /HPF; Status: F Test: BACTERIA, URINE AUTO; Value: NEGATIVE; Range: NEGATIVE; Status: F Test: SQUAMOUS EPITHELIAL CELL UR AU; Value: 3; Range: 0-6; Units: /HPF; Status: F Test: MUCUS, URINE; Value: SMALL; Range: NEGATIVE; Status: F Test: HYALINE CAST, URINE AUTO; Value: 0; Range: 0-1; Units: /LPF; Status: F Test: AMORPHOUS SEDIMENT; Value: SMALL; Range: NEGATIVE; Abnormal: Above high normal; Status: F Lab Order: Urine Test-In Lab; SPEC'M 06/14/16 23:35 Test: URINE PREG TEST; Value: NEGATIVE; Range: NEGATIVE; Status: F Lab Order: Urine Culture; SPEC'M 06/14/16 23:35 Test: URINE CULTURE; Value: URINE CULTURE RESULT SPECIMEN APPEARS CONTAMINATED; Status: F Outcome: 00:53 Discharge ordered by Provider. mo1 01:02 Discharge Assessment: Patient awake, alert and oriented x 3. No cognitive and/or cz functional deficits noted. Patient verbalized understanding of disposition instructions. patient administered narcotics - no. The following High Risk Discharge criteria are identified: None. Discharged to home ambulatory. Condition: stable. Discharge instructions given to patient, Instructed on discharge instructions, follow up and referral plans. medication usage, Demonstrated understanding of instructions, medications, Pt was receptive of discharge instructions/ teaching. Prescriptions given X 3. No special radiology studies were completed. Property :Personal belongings accompany Pt. 01:04 Patient left the ED. cz Signatures: Josep George RN RN cz Nargis Peterson, Reg Reg gb Giselle, Edward, MANAGER PLAY MANAGER PLAY kb5 Marcie Perdomo, MANAGER PLAY MANAGER PLAY ar3 Anita Cordero,RN RN pml Carmen Webster gr2 Karri Menendez PA PA mo1 Nery Sanchez, Reg Reg hs2 Son, Emily, MANAGER PLAY MANAGER PLAY cln Chart Complete MTDD
== END 2016-06-15 01:04 | disposition home or self-care (01) ==
LOC: M ED 21:07
DX: N39.0 Urinary tract infection, site not specified (principal); R11.2 Nausea with vomiting, unspecified; J45.909 Unspecified asthma, uncomplicated; F31.9 Bipolar disorder, unspecified; G43.909 Migraine, unspecified, not intractable, without status migrainosus; G40.909 Epilepsy, unspecified, not intractable, without status epilepticus; F11.20 Opioid dependence, uncomplicated; F17.210 Nicotine dependence, cigarettes, uncomplicated; Z92.240 Personal history of inhaled steroid therapy; Z79.899 Other long term (current) drug therapy; Z88.5 Allergy status to narcotic agent; Z88.6 Allergy status to analgesic agent; Z88.8 Allergy status to other drugs, medicaments and biological substances

== ENCOUNTER 2016-08-07 23:01 | Emergency (ER) | payer OTHER ==
[~2016-08-07] VITALS: Ht 162.6 cm; Wt 142.4 kg
[2016-08-07] MEDS ORDERED: SUBO8MIS (23:29)
[2016-08-07] MEDS ORDERED: LAMI25TA PO (23:31)
[2016-08-07] MEDS ORDERED: AMBI5TAB PO (23:31)
[2016-08-08] MEDS ORDERED: OMEP20CA3 PO (01:36)
[2016-08-08] MEDS ORDERED: ZOFR4TAB3 PO (01:37)
[2016-08-08 01:42] VITALS: BP 137/71
[2016-08-08] MEDS ORDERED: PANTOPRAZOLE 40MG TAB (PROTONIX) PO ONE (01:45)
[2016-08-08] MEDS ORDERED: ONDANSETRON 4 MG ORAL DISINTEGRATING TAB (S0181) PO ONE (01:45)
== END 2016-08-08 01:45 | disposition home or self-care (01) ==
LOC: M ED 08-08 00:13
DX: K21.9 Gastro-esophageal reflux disease without esophagitis (principal); H92.01 Otalgia, right ear; F17.200 Nicotine dependence, unspecified, uncomplicated; Z88.8 Allergy status to other drugs, medicaments and biological substances; Z88.5 Allergy status to narcotic agent

== ENCOUNTER → 2016-10-21 | Outpatient (CLI) | payer OTHER ==
[~2016-10-21] MED LIST: AMBI5TAB PO; LAMI25TA PO; OMEP20CA3 PO; SUBO8MIS; ZOFR4TAB3 PO
[2016-10-21 12:21] LABS: MEAN CORPUSCULAR HEMOGLOBIN 27.2 pg (27.0-33.0); MEAN CORPUSCULAR HGB CONC 32.4 g/dl (32.0-36.5)
[2016-10-21 13:44] LABS: ALBUMIN 3.7 GM/DL (3.2-5.2); ALBUMIN/GLOBULIN RATIO 0.93 (1.00-1.93); ALKALINE PHOSPHATASE 74 U/L (45-117); ALT/SGPT 26 U/L (12-78); ANION GAP 6 MEQ/L (8-16); AST/SGOT 10 U/L (15-37); BILIRUBIN,TOTAL 0.4 MG/DL (0.2-1.0); BLOOD UREA NITROGEN 14 MG/DL (7-18); CALCIUM LEVEL 8.9 MG/DL (8.5-10.1); CARBON DIOXIDE LEVEL 32 MEQ/L (21-32); CHLORIDE LEVEL 100 MEQ/L (98-107); CHOLESTEROL LEVEL 118 MG/DL (<200); CREATININE FOR GFR 0.61 MG/DL (0.55-1.02); GLOMERULAR FILTRATION RATE > 60.0 (>60); GLUCOSE, FASTING 97 MG/DL (70-105); SODIUM LEVEL 138 MEQ/L (136-145); TOTAL PROTEIN 7.7 GM/DL (6.4-8.2); TRIGLYCERIDES LEVEL 72 MG/DL (<150)
== END ==
LOC: M LAB 11:27
PROVIDERS: ATTEND Nurse Practitioner Adult Health
DX: Z00.00 Encounter for general adult medical examination without abnormal findings (principal)

== ENCOUNTER → 2016-11-08 | Outpatient (CLI) | payer OTHER ==
[~2016-11-08] MED LIST changes: +METHACHOLINE KIT (J7674) INH ONE
--- NOTE | 2016-11-08 16:29 | PFTRPT ---
Tech: Mao MANZO RRT Age: 30 Sex: Female Race: Height: 64.00 Inches Weight: 310.00 Lbs BSA: 2.36 Diagnosis: R05 PULMONARY FUNCTION REPORT ORDERING PROVIDER: SORAYA Anderson DATE OF SERVICE: 11/08/16 SPIROMETRY: Excellent technical quality. The forced vital capacity is normal. The FEV1 is out of proportion. The obstructive index is, therefore, normal. FLOW VOLUME LOOP: The expiratory limb of the flow volume loop does suggest some degree of nonspecific flow rate limitation. LUNG VOLUMES: The total lung capacity is normal. The residual volume suggests air trapping. DIFFUSION CAPACITY: The diffusion capacity is normal. HEMOGLOBIN: No hemoglobin is available for correction. AIRWAY MECHANICS: Airways resistance and conductance are normal. IMPRESSION: Cannot rule out a degree of air trapping. Please correlate clinically. MTDD
--- NOTE | 2016-11-08 16:30 | PFTRPT ---
Tech: Mao MANZO RRT Age: 30 Sex: Female Race: Height: 64.00 Inches Weight: 310.00 Lbs BSA: 2.36 Diagnosis: R05 METHACHOLINE CHALLENGE REPORT: ORDERING PROVIDER: SORAYA Anderson DATE OF SERVICE:11/08/16 INTERPRETATION: The study was of excellent technical quality. Under protocol, methacholine was administered. Some difficulty with effort is noted. At a dose of 0.025 mg ( 0.125 CDUs), a 24% decline in the FEV1 was noted. Flow rates did return to baseline post bronchodilator administration. IMPRESSION: Positive methacholine challenge study. MTDD
== END ==
LOC: M CARPUL 14:48
PROVIDERS: ATTEND Nurse Practitioner Adult Health
DX: R05 Cough (principal)

== ENCOUNTER → 2016-11-17 | Outpatient (REF) | payer OTHER, MEDICAID ==
[~2016-11-17] MED LIST changes: -METHACHOLINE KIT (J7674) INH ONE
== END ==
LOC: M LAB REF 17:15
PROVIDERS: ATTEND Advanced Practice Midwife
DX: Z12.4 Encounter for screening for malignant neoplasm of cervix (principal)

== ENCOUNTER → 2016-11-23 | Outpatient (CLI) | payer OTHER, MEDICAID ==
[2016-11-23 13:33] LABS: CONTROL LINE HCG INT CTR LINE PRESENT
[2016-11-23 13:49] LABS: FOLLICLE STIMULATING HORMONE 5.5 mIU/mL; PROLACTIN 24.2 NG/ML
[2016-11-23 15:19] LABS: GLUCOSE, FASTING 92 MG/DL (70-105); T UPTAKE 34 % (30-39); THYROXINE (T4) 8.2 UG/DL (4.5-12.0)
[2016-11-26 08:08] LABS: INSULIN FREE 11 uU/mL (.)
== END ==
LOC: M LAB 09:29
PROVIDERS: ATTEND Advanced Practice Midwife
DX: N92.6 Irregular menstruation, unspecified (principal)

== ENCOUNTER 2017-01-26 12:30 | Outpatient (RCR) | payer OTHER | END 2017-01-27 | LOC: M PT 12:30 | PROVIDERS: ATTEND Nurse Practitioner Adult Health | DX: Z51.89 Encounter for other specified aftercare (principal); M54.32 Sciatica, left side ==

== ENCOUNTER → 2017-03-09 | Outpatient (REF) | payer OTHER | LOC: M SFHCPLAZ 12:44 | PROVIDERS: ATTEND Nurse Practitioner Adult Health | DX: J02.9 Acute pharyngitis, unspecified (principal) ==

== ENCOUNTER → 2017-03-14 | Outpatient (CLI) | payer OTHER ==
[2017-03-14 10:23] LABS: ESTRADIOL 193.3 PG/ML; PROGESTERONE 0.8 NG/ML
== END ==
LOC: M LAB 09:28
PROVIDERS: ATTEND Advanced Practice Midwife
DX: N92.6 Irregular menstruation, unspecified (principal)

== ENCOUNTER → 2017-03-15 | Outpatient (CLI) | payer OTHER | LOC: M RAD 18:17 | PROVIDERS: ATTEND Advanced Practice Midwife | DX: N92.6 Irregular menstruation, unspecified (principal) ==

== ENCOUNTER → 2017-03-15 | Outpatient (CLI) | payer OTHER ==
--- NOTE | 2017-03-16 07:23 | REP ---
Clinical: Irregular menstrual cycles . Technique: Transabdominal pelvic ultrasound followed by transvaginal examination for better evaluation of the endometrium and adnexa with color Doppler evaluation of the ovaries. Findings: Bladder is unremarkable and measures 4.8 x 3.0 x 5.8 cm . Normal anteverted uterus measures 7.5 x 3.6 x 4.7 cm . The endometrial complex measures 10.0 mm thickness. No discrete uterine or endometrial abnormalities are appreciated. Bilateral ovaries are normal in appearance and vascularity without evidence for torsion. Right ovary measures 3.1 x 2.7 x 3.3 cm ; R I = 0.55 . Left ovary measures 4.4 x 2.9 x 3.5 cm with 2.9 cm hemorrhagic cyst ; R I = 0.52 . No pelvic fluid or adnexal mass lesion . Impression: 1. Normal uterus and right ovary. 2. 2.9 cm left hemorrhagic cyst. Consider follow-up examination in four to six weeks to evaluate for resolution. Signed by Ghanshyam Vasquez MD 03/16/2017 07:14 A
== END ==
LOC: M RAD 18:07
PROVIDERS: ATTEND Advanced Practice Midwife
DX: N92.6 Irregular menstruation, unspecified (principal)

== ENCOUNTER 2017-04-16 22:52 | Emergency (ER) | payer OTHER ==
[~2017-04-16] VITALS: Ht 162.6 cm; Wt 136.4 kg
[2017-04-16] MEDS ORDERED: ADVA115A (23:08)
[2017-04-17] MEDS ORDERED: ERYTOIN8 OS (01:44)
[2017-04-17] MEDS ORDERED: FLON1SPR (01:44)
[2017-04-17] MEDS ORDERED: ERYTHROMYCIN OPHTH OINT OS ONE (01:45)
[2017-04-17 01:51] VITALS: BP 136/78
== END 2017-04-17 01:54 | disposition home or self-care (01) ==
LOC: M ED 22:52
DX: H00.014 Hordeolum externum left upper eyelid (principal); H10.32 Unspecified acute conjunctivitis, left eye; J00 Acute nasopharyngitis [common cold]; Z72.0 Tobacco use

== ENCOUNTER → 2017-08-10 | Outpatient (CLI) | payer OTHER | LOC: M OUTALCOH 08:27 | DX: F14.20 Cocaine dependence, uncomplicated (principal); F11.10 Opioid abuse, uncomplicated; F12.10 Cannabis abuse, uncomplicated ==

== ENCOUNTER 2017-08-23 11:48 | Outpatient (RCR) | payer OTHER | END 2017-08-27 | LOC: M OUTALCOH 11:48 | DX: F14.20 Cocaine dependence, uncomplicated (principal); F11.10 Opioid abuse, uncomplicated; F12.10 Cannabis abuse, uncomplicated ==

== ENCOUNTER 2017-08-31 14:50 | Outpatient (RCR) | payer OTHER | END 2017-09-26 | LOC: M OUTALCOH 09-06 16:00 | DX: F14.20 Cocaine dependence, uncomplicated (principal); F11.10 Opioid abuse, uncomplicated; F12.10 Cannabis abuse, uncomplicated ==

== ENCOUNTER 2017-10-03 13:41 | Outpatient (RCR) | payer OTHER | END 2017-10-27 | LOC: M OUTALCOH 10-04 16:00 | DX: F14.20 Cocaine dependence, uncomplicated (principal); F11.10 Opioid abuse, uncomplicated; F12.10 Cannabis abuse, uncomplicated ==

== ENCOUNTER → 2018-06-06 | Outpatient (CLI) | payer MEDICAID ==
[~2018-06-06] MED LIST changes: +ADVA115A; +ERYTOIN8 OS; +FLON1SPR; +ZOFR4TAB14 PO; -ZOFR4TAB3 PO
[2018-06-06 14:02] LABS: HEMATOCRIT 37.4 % (36.0-47.0); HEMOGLOBIN 11.6 g/dl (12.0-15.5); MEAN CORPUSCULAR HEMOGLOBIN 27.2 pg (27.0-33.0); MEAN CORPUSCULAR VOLUME 87.8 fl (80.0-96.0); PLATELET COUNT, AUTOMATED 311 10^3/uL (150-450); RED BLOOD COUNT 4.26 10^6/uL (4.00-5.40); WHITE BLOOD COUNT 6.7 10^3/uL (4.0-10.0)
[2018-06-06 14:15] LABS: HCG, SERUM QUALITATIVE NEGATIVE (NEGATIVE)
[2018-06-06 14:17] LABS: FREE T4 0.91 NG/DL (0.76-1.46)
== END ==
LOC: M SMT 09:47
PROVIDERS: ATTEND Advanced Practice Midwife
DX: N92.4 Excessive bleeding in the premenopausal period (principal)

== ENCOUNTER → 2018-06-19 | Outpatient (CLI) | payer MEDICAID ==
[~2018-06-19] MED LIST changes: +AUGM875T28 PO; +CLAR10CA3 PO; +KETO10TAB PO; +LIDO1SOL7 PO; +TOPA1TAB PO; +bcp PO
--- NOTE | 2018-06-19 12:35 | REP ---
PELVIC ULTRASOUND: Real-time sonographic evaluation of the pelvis performed utilized transabdominal and endovaginal technique. Comparison 03/15/2017. The urinary bladder measures 7.2 x 3.5 x 6.6 cm. The uterus measures 8.7 x 4.8 x 5.1 cm. Endometrium is thickened. There are multiple tiny echogenic foci in the endometrial echo complex suggesting multiple tiny calcifications. No endometrial fluid collection is seen. Right ovary measures 3.8 x 2.5 x 2.9 cm and left ovary 3.6 x 2.6 x 3.1 cm. A dominant follicle of the left ovary measures 1.9 cm in maximum diameter. There is no other evidence of adnexal mass or free fluid. There is no torsion of either ovary, RI right ovary 0.60, and left ovary 0.56 with duplex Doppler evaluation. IMPRESSION: Thickened endometrium up to 30 mm with what appear to be multiple tiny calcifications within the endometrial echo complex. No adnexal mass or free fluid. Electronically Signed by Hilton Garcia MD 06/19/2018 12:59 P
== END ==
LOC: M RAD 10:56
PROVIDERS: ATTEND Advanced Practice Midwife
DX: R93.89 Abnormal findings on diagnostic imaging of other specified body structures (principal); N92.4 Excessive bleeding in the premenopausal period

== ENCOUNTER 2018-06-20 20:50 | Emergency (ER) | payer MEDICAID ==
[~2018-06-20] VITALS: Ht 162.6 cm; Wt 109.1 kg
[2018-06-20 20:50] VITALS: BP 165/96
[~2018-06-20 20:50] MED LIST changes: -AUGM875T28 PO; -CLAR10CA3 PO; -KETO10TAB PO; -LIDO1SOL7 PO; -TOPA1TAB PO; -bcp PO
[2018-06-20] MEDS ORDERED: CLAR10CA3 PO (21:13)
[2018-06-20] MEDS ORDERED: TOPA1TAB PO (21:13)
[2018-06-20] MEDS ORDERED: bcp PO (21:13)
[2018-06-20] MEDS ORDERED: LIDOCAINE VISCOUS 2% SOLN 15ML UDC SSP ONE (22:45)
[2018-06-20] MEDS ORDERED: KETOROLAC TROMETHAMINE 10 MG TAB PO ONE (22:45)
[2018-06-20] MEDS ORDERED: AUGMENTIN 875 MG TAB PO ONE (22:45)
[2018-06-20] MEDS ORDERED: AUGM875T28 PO (22:46)
[2018-06-20] MEDS ORDERED: LIDO1SOL7 PO (22:46)
[2018-06-20] MEDS ORDERED: KETO10TAB PO (22:46)
== END 2018-06-20 23:19 | disposition home or self-care (01) ==
LOC: M ED 20:50
DX: K04.7 Periapical abscess without sinus (principal); K02.9 Dental caries, unspecified; J45.909 Unspecified asthma, uncomplicated; K21.9 Gastro-esophageal reflux disease without esophagitis; F41.9 Anxiety disorder, unspecified; F32.9 Major depressive disorder, single episode, unspecified; Z88.8 Allergy status to other drugs, medicaments and biological substances; Z88.5 Allergy status to narcotic agent; Z79.899 Other long term (current) drug therapy

== ENCOUNTER 2018-07-01 19:15 | Emergency (ER) | payer MEDICAID, OTHER ==
[~2018-07-01] VITALS: Ht 162.6 cm; Wt 109.1 kg
[~2018-07-01 19:15] MED LIST changes: +AUGM875T28 PO; +CLAR10CA3 PO; +KETO10TAB PO; +LIDO1SOL7 PO; +TOPA1TAB PO; +bcp PO
[2018-07-01 20:19] LABS: BASO # 0.1 10^3/uL (0.0-0.2); BASO % 0.4 % (0.0-1.0); EOS % 0.2 % (0.0-3.0); HEMATOCRIT 35.3 % (36.0-47.0); HEMOGLOBIN 10.8 g/dl (12.0-15.5); LYMPH # 1.2 10^3/uL (1.5-4.5); LYMPH % 9.1 % (24.0-44.0); MEAN CORPUSCULAR HEMOGLOBIN 26.1 pg (27.0-33.0); MEAN CORPUSCULAR HGB CONC 30.6 g/dl (32.0-36.5); MEAN CORPUSCULAR VOLUME 85.3 fl (80.0-96.0); MONO # 0.6 10^3/uL (0.0-0.8); MONO % 4.4 % (0.0-5.0); NEUTROPHILS # 11.2 10^3/uL (1.8-7.7); NEUTROPHILS % 85.5 % (36.0-66.0); PLATELET COUNT, AUTOMATED 332 10^3/uL (150-450); RED BLOOD COUNT 4.14 10^6/uL (4.00-5.40); WHITE BLOOD COUNT 13.1 10^3/uL (4.0-10.0)
[2018-07-01 20:46] LABS: BLOOD UREA NITROGEN 20 MG/DL (7-18); CALCIUM LEVEL 8.4 MG/DL (8.5-10.1); CARBON DIOXIDE LEVEL 22 MEQ/L (21-32); CHLORIDE LEVEL 110 MEQ/L (98-107); CREATININE FOR GFR 0.76 MG/DL (0.55-1.30); GLOMERULAR FILTRATION RATE > 60.0 (>60); GLUCOSE, FASTING 107 MG/DL (70-100); HCG, SERUM QUANTITATIVE < 1.0 MIU/ML; POTASSIUM SERUM 3.9 MEQ/L (3.5-5.1); SODIUM LEVEL 141 MEQ/L (136-145)
[2018-07-01 21:54] LABS: CHLAMYDIA DNA AMPLIFICATION NEGATIVE (NEGATIVE); GC DNA AMPLIFICATION NEGATIVE (NEGATIVE)
[2018-07-01] MEDS ORDERED: TOPA1TAB PO (22:42)
[2018-07-01] MEDS ORDERED: metroNIDAZOLE (FLAGYL) 500 MG TAB PO ONE (22:45)
--- NOTE | 2018-07-01 22:51 | REPVR ---
EXAM: US Pelvis Complete, Transabdominal EXAM DATE/TIME: 07/01/2018 9:16 PM CLINICAL HISTORY: 32 years old, female; Pain; Pelvic pain; Additional info: Dub, left adnexal tenderness TECHNIQUE: Real-time transabdominal pelvic ultrasound with image documentation. Complete exam. COMPARISON: US PELVIC NON-OB COMPLETE 06/19/2018 11:11 AM FINDINGS: Uterus/cervix: The uterus measures 8.5 CM in length by 4.1 CM in AP dimension by 5.1 CM in transverse dimension. The upper portion of the endometrium is not thickened. There is thickening of the endometrium in the lower uterine segment measuring 1.4 CM. There could be a mass or polyp in the lower endometrium and therefore it would be very important to have a followup ultrasound after 2-3 cycles to see if this changes. There is concern about possible underlying polyp of the lower uterine segment if this remains focally thickened. Right adnexa: The right ovary measures 3 CM in length by 2.5 CM in thickness. There is vascular flow of the right ovary with no evidence of torsion. The left ovary measures 3.3 CM in length by 1.5 cm thickness. There is vascular flow of the left ovary with no evidence of torsion. Free fluid: There is no evidence of free fluid in the pelvis. Bladder: The urinary bladder is empty. IMPRESSION: There is prominent focal thickening of the endometrium of the lower uterine segment measuring 1.4 CM. Endometrial pathology or underlying polyp in this area a concern. At the minimum the patient should undergo a followup pelvic ultrasound perhaps after 2-3 cycles to ensure that the endometrium returns to a thin appearance. If this remains thickened, further investigation would be warranted. Electronically signed by: Zuhair Dooley On 07/01/2018 22:51:04 PM
[2018-07-01 23:02] VITALS: BP 124/77
--- NOTE | 2018-07-02 17:01 | ED PDOC ---
Post-Departure Follow-Up dr rodrigues faxed formal report of pelvic us for fu. Tmi Ziegler MD Jul 02, 2018 17:01
== END 2018-07-01 23:04 | disposition home or self-care (01) ==
LOC: M ED 19:15
DX: A59.9 Trichomoniasis, unspecified (principal); Z79.899 Other long term (current) drug therapy; Z79.891 Long term (current) use of opiate analgesic; Z88.5 Allergy status to narcotic agent; Z88.8 Allergy status to other drugs, medicaments and biological substances

== ENCOUNTER → 2018-07-25 | Outpatient (REF) | payer OTHER ==
[2018-07-28 14:22] LABS: HPV HYBRID CAPTURE II Negative (Negative)
== END ==
LOC: M LAB REF 13:19
PROVIDERS: ATTEND Specialist
DX: Z12.4 Encounter for screening for malignant neoplasm of cervix (principal); Z11.51 Encounter for screening for human papillomavirus (HPV); B37.3 Candidiasis of vulva and vagina

== ENCOUNTER → 2018-09-05 | Outpatient (CLI) | payer OTHER ==
[~2018-09-05] MED LIST changes: -LIDO1SOL7 PO; +LIDO1SOL8 PO
--- NOTE | 2018-09-06 05:10 | REP ---
Clinical: Vaginal bleeding . Technique: Transabdominal pelvic ultrasound followed by transvaginal examination for better evaluation of the endometrium and adnexa. Findings: Bladder is collapsed. Normal anteverted uterus measures 9.1 x 3.2 x 5.0 cm . The endometrial complex measures 3.0 mm thickness. No discrete uterine or endometrial abnormalities are appreciated. Bilateral ovaries are normal in appearance. Right ovary measures 2.0 x 1.8 x 1.6 cm ; Left ovary measures 3.3 x 1.7 x 3.0 cm. No pelvic fluid or adnexal mass lesion . Impression: 1. Essentially normal pelvic ultrasound. Electronically Signed by Ghanshyam Vasquez MD 09/06/2018 05:02 A
== END ==
LOC: M RAD 10:18
PROVIDERS: ATTEND Specialist
DX: N93.8 Other specified abnormal uterine and vaginal bleeding (principal)

== ENCOUNTER 2018-09-12 23:33 | Emergency (ER) | payer OTHER ==
[~2018-09-12] VITALS: Ht 162.6 cm; Wt 111.9 kg
[2018-09-12] MEDS ORDERED: bcp PO (23:42)
[2018-09-13 06:42] VITALS: BP 123/87
== END 2018-09-13 06:44 | disposition home or self-care (01) ==
LOC: M ED 23:33
DX: Z11.4 Encounter for screening for human immunodeficiency virus [HIV] (principal); Z72.0 Tobacco use; Z88.5 Allergy status to narcotic agent; Z88.8 Allergy status to other drugs, medicaments and biological substances; Z79.899 Other long term (current) drug therapy; Z79.3 Long term (current) use of hormonal contraceptives

== ENCOUNTER → 2018-12-27 | Outpatient (REF) | payer OTHER ==
[~2018-12-27] MED LIST changes: -OMEP20CA3 PO; +OMEP20CA4 PO
[2018-12-27 15:58] LABS: ALBUMIN 3.6 GM/DL (3.2-5.2); ALT/SGPT 23 U/L (12-78); BILIRUBIN,TOTAL 0.4 MG/DL (0.2-1.0); BLOOD UREA NITROGEN 9 MG/DL (7-18); CALCIUM LEVEL 8.7 MG/DL (8.5-10.1); CARBON DIOXIDE LEVEL 25 MEQ/L (21-32); CHLORIDE LEVEL 110 MEQ/L (98-107); CREATININE FOR GFR 0.69 MG/DL (0.55-1.30); GLOMERULAR FILTRATION RATE > 60.0 (>60); GLUCOSE, FASTING 83 MG/DL (70-100); POTASSIUM SERUM 4.4 MEQ/L (3.5-5.1); RHEUMATOID FACTOR QUANT < 10.0 IU/ML (<15.0); SODIUM LEVEL 139 MEQ/L (136-145); TOTAL PROTEIN 7.3 GM/DL (6.4-8.2)
[2018-12-27 16:08] LABS: FOLATE 13.8 NG/ML (>5.4); TOTAL 25(OH) VITAMIN D 29.7 NG/ML (30.0-100.0); VITAMIN B12 LEVEL 319 PG/ML (247-911)
[2018-12-29 14:07] LABS: ANTINUCLEAR ANTIBODIES DIRECT Negative (Negative)
== END ==
LOC: M LABNEURO 11:35
PROVIDERS: ATTEND Psychiatry & Neurology Neurology
DX: R51 Headache (principal)